=== PATIENT | male | born 1970 | race Caucasian/White ===

== ENCOUNTER 2024-06-13 12:41 | Emergency (ER) | payer BC, SELFPAY ==
[2024-06-13 12:45] VITALS: BP 165/103
--- NOTE | 2024-06-13 13:51 | ED.GENMED ---
History of Present Illness
General
Chief Complaint: Musculo-Skeletal Complaint
Source: patient
Time Seen by Provider: 06/13/24 13:42
History of Present Illness
History of Present Illness:
53-year-old male with past medical history of hypertension and hyperlipidemia presenting to the emergency department for atraumatic pain and edema of the left upper extremity concentrated around the left forearm and wrist that began a few days ago,
gradually worsening, constant throbbing sensation and unrelieved with Tylenol. Patient states that about 2 months ago he was treated for Lyme's disease and during that time noticed about 3 days of left wrist edema but this all resolved with
completion of doxycycline patient denies any fevers, chills, rigors, abnormal weight loss, weakness or numbness to the extremity. Denies any history of similar. Notes that recently had blood work done with primary care provider which showed he is
on borderline for diabetes and is currently undergoing lifestyle modifications until repeat blood work to be done. Patient denies any cigarettes or tobacco history. Denies any history of IV drug use. Does admit to recent travel to [place] when
around symptoms started.
Past History
Past History
ED Past Medical History: HTN, Hypercholesterolemia and Other (Cystectomy, pancreatitis, sinus surgery, kidney stones)
ED Past Surgical History: Cholecystectomy and Other
Patient has exhibited threatening behavior?: No
Social History
Tobacco: Non-smoker
Alcohol: Occasional
Drug: None
Personal:
Living: with family
Employment: Employed
Family History
Family History: Negative Diabetes, Hypertension or CAD
Review of Systems
Review of Systems
All Other Systems: ROS reviewed and negative except as documented in HPI and ROS
Phy Exam
Physical Exam
Physical Exam:
GENERAL: Alert , in no apparent distress
EYE: conjunctiva clear
Head: Normocephalic atraumatic
NECK: Supple,
ENT: mmm.
LUNGS: no acute respiratory distress
NEUROLOGICAL: Alert and oriented
SKIN: Warm and dry, skin intact.
MUSCULOSKELETAL: Left upper extremity: There is mild to moderate soft tissue swelling over the entirety of the dorsal and volar aspect of the wrist and distal forearm. Patient does allow for range of motion of the extremity however pain increases
with wrist flexion more than wrist extension. Ulnar and medial deviation also causes pain. Easily palpable radial pulse. Sensation is intact and equal to all digits. There is no overlying erythema or breaks in the skin.
PSYCH: Normal and appropriate interaction.
Scores
Heart Failure Risk
Heart Failure Risk Score: Not Applicable
Heart Score for Chest Pain Patients
STEMI patient?: Not applicable
Withdrawal Assessment of Alcohol
Withdrawal Assessment Completed?: Not applicable
Course
Orders/Labs/Results
Orders:
Orders
06/13/24 13:50
CR Wrist - Left Min 3 Views Urgent
Comment:
Reason For Exam: pain, edema
US Periph Venous UPPER Ext LT Urgent
Comment:
Reason For Exam: edema, pain, recent travel
06/13/24 13:56
Ibuprofen [Motrin] 600 mg PO NOW STA
Oxycodone/Acetaminophen [Percocet 5/325] 1 tablet PO NOW STA
Vital Signs
Initial and Last Documented VS:
Initial Vital Signs
Temp Pulse Resp BP Pulse Ox
98.7 F 78 18 165/103 97
06/13/24 12:45 06/13/24 12:45 06/13/24 12:45 06/13/24 12:45 06/13/24 12:45
Last Documented Vital Signs
Temp Pulse Resp BP Pulse Ox
98.7 F 78 18 165/103 97
06/13/24 12:45 06/13/24 12:45 06/13/24 12:45 06/13/24 12:45 06/13/24 12:45
MDM/Problems Addressed
Differential Diagnosis Includes:
Osteoarthritis, optic joint, DVT, gout, recurring Lyme, minimal concern for fracture or sprain given lack of trauma
MDM/Problems Addressed:
53-year-old male presenting to the emergency department for atraumatic left wrist and forearm edema over the last few days. No outward signs of infection. Patient is afebrile, no overlying erythema and has not had any fevers at home. Range of
motion increases pain. Extremity is neurovascularly intact. Will obtain x-ray and ultrasound. Pain control with Motrin and Percocet here. Disposition pending. I do anticipate patient will need close follow-up with orthopedics.
*Radiology
Radiology exam reviewed: preliminary read by ED provider (Normal x-ray of the wrist) and radiology read reviewed
*Pulse Oximetry
Patient hypoxic: no
*Critical Care Note
Total Time (30-74mins, 75-104mins- exclusive of procedures): Not Applicable
Patient Management
Escalation/DeEscalation of care consider admission/obs:
Patient's imaging unremarkable. Prescription for naproxen and Percocet sent to pharmacy. Information for orthopedics provided. Advise close follow-up with primary care provider as well. Aware of return precautions. Otherwise stable for
discharge home.
ED Attending Note
-
Portions of this chart may have been created with voice recognition software.� Occasional wrong word or��sound alike� substitutions may have occurred due to the inherent limitations of voice recognition software.
Discharge Plan
Departure
Patient Disposition: Home (Routine Discharge)
Date of Disposition: 06/13/24
Time of Disposition: 15:12
Patient with high blood pressure during this ER visit?: Yes
Discharge Problem:
Wrist pain, left
Instructions: Gout ED
Prescriptions:
New
naproxen 500 mg tablet
500 mg PO BID 7 Days Qty: 14 0RF
oxycodone-acetaminophen [Percocet] 5-325 mg tablet
1 tab PO Q6HPRN PRN (Reason: pain) Qty: 8 0RF
No Action
prednisone 10 MG tablets,dose pack
10 mg PO DAILY
tamsulosin 0.4 MG capsule
0.4 mg PO DAILY Qty: 14 0RF
oxycodone-acetaminophen 5 MG/325 MG tablet
2 tab PO Q6HPRN PRN (Reason: severe pain) Qty: 30 0RF
oxycodone 5 MG tablet
5 mg PO Q4HPRN PRN (Reason: breakthrough/severe pain) Qty: 10 0RF
ondansetron 4 MG tablet,disintegrating
4 mg PO TIDPRN PRN (Reason: nausea/vomiting) Qty: 12 0RF
Referrals:
Enio Lopez MD [Active] - (Ortho - Please call for appointment)
Francisco Kinney MD [Family Provider] -
Interventions
Interventions:
*Risk Screen - Suicide Last Done: 06/13/24 12:45
*General Assessment Last Done: 06/13/24 12:45
*Neglect/Abuse Screening Last Done: 06/13/24 12:45
*Nursing Disposition Last Done: 06/13/24 15:27
ED-Musculoskeletal Assessment Last Done: 06/13/24 14:36
Discharge Date and Time
Discharge Date/Time: 06/13/24 15:28
Print Language: WELSH
[2024-06-13] MEDS: MOTRIN 600 MG PO (14:28)
[2024-06-13] MEDS: PERCOCET 5/325 1 TABLET PO (14:28)
== END 2024-06-13 15:28 | disposition home or self-care (01) ==
LOC: EMR 12:41
PROVIDERS: EMERGENCY PHYSICIAN Emergency Medicine; FAMILY PHYSICIAN Family Medicine
DX: M25.532 Pain in left wrist (principal); R60.0 Localized edema; I10 Essential (primary) hypertension; E78.00 Pure hypercholesterolemia, unspecified; Z90.49 Acquired absence of other specified parts of digestive tract; Z87.442 Personal history of urinary calculi
CPT/HCPCS: 99284; 73110; 93971